=== PATIENT | female | born 1975 | race Caucasian/White ===

== ENCOUNTER 2016-11-11 18:13 | Emergency (ER) | payer OTHER ==
[~2016-11-11] VITALS: Ht 160 cm; Wt 73.5 kg
[2016-11-11 18:17] VITALS: BP 159/84; PULSE 95; RESP 17; TEMP 97.9; O2SAT 96
[2016-11-11] MEDS ORDERED: MELO-1 PO (18:38)
[2016-11-11] MEDS ORDERED: CYCL1TAB29 PO (18:38)
[2016-11-11] MEDS ORDERED: PRED50 PO (18:38)
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
[2016-11-11] MEDS ORDERED: KETOROLAC TROMETHAMINE 60 MG/2 ML (IM) VIAL IM ONE (18:45)
[2016-11-11] MEDS ORDERED: ORPHENADRINE INJ 60 MG/2 ML AMP IM ONE (18:45)
== END 2016-11-11 18:54 | disposition home or self-care (01) ==
LOC: NETRI 18:13
DX: M62.838 Other muscle spasm (principal); T14.8 Other injury of unspecified body region; V53.5XXA Driver of pick-up truck or van injured in collision with car, pick-up truck or van in traffic accident, initial encounter; Y92.481 Parking lot as the place of occurrence of the external cause
CPT/HCPCS: 96372; 99283; J1885; J2360

== ENCOUNTER → 2017-04-11 | Outpatient (CLI) | payer OTHER ==
[~2017-04-11] MED LIST: CYCL1TAB29 PO; LEXA10TA PO; LEXA5TAB PO; MELO-1 PO; PRED50 PO
[2017-04-11 14:03] LABS: AUTOMATED NEUTROPHIL # 4.8 TH/MM3 (1.8-7.7); BASOPHIL # 0.1 TH/MM3 (0-0.2); BASOPHIL % 0.9 % (0.0-2.0); EOSINOPHIL % 0.6 % (0.0-4.0); HEMATOCRIT 35.8 % (35.0-46.0); HEMO FLAGS DIFF FINAL; LYMPH % 33.4 % (9.0-44.0); LYMPHOCYTE # 2.6 TH/MM3 (1.0-4.8); MEAN CELL VOLUME 75.8 FL (80.0-100.0); MEAN CORPUSCULAR HGB CONC 31.6 % (32.0-36.0); MONO % 4.2 % (0.0-8.0); NEUT % 60.9 % (16.0-70.0); PLATELET COUNT 189 TH/MM3 (150-450); RED BLOOD COUNT 4.72 MIL/MM3 (4.00-5.30); RED CELL DISTRIBUTION WIDTH 15.5 % (11.6-17.2); WHITE BLOOD COUNT 7.8 TH/MM3 (4.0-11.0)
[2017-04-11 14:05] LABS: BLOOD, URINE NEG (NEG); COMMENT (UR) CULT NOT INDICATED; CULTURE IF INDICATED CULT NOT INDICATED; GLUCOSE,URINE NEG (NEG); KETONE, URINE NEG (NEG); NITRITE,URINE NEG (NEG); SQUAMOUS EPITHELIAL CELL URINE <1 /hpf (0-5); URINE COLOR YELLOW (YELLW/STRAW)
--- NOTE | 2017-04-13 01:19 | EKG ---
Date Performed: 04/11/2017 Time Performed: 13:43:34 PTAGE: 42 years EKG: Sinus rhythm PROLONGED QT INTERVAL ABNORMAL ECG NO PREVIOUS TRACING DOCTOR: Van Payton Interpretating Date/Time 04/13/2017 01:17:40
== END ==
LOC: CPRE 12:56
PROVIDERS: ATTEND Obstetrics & Gynecology
DX: Z01.810 Encounter for preprocedural cardiovascular examination (principal); Z01.812 Encounter for preprocedural laboratory examination; N92.0 Excessive and frequent menstruation with regular cycle; N94.6 Dysmenorrhea, unspecified; R94.31 Abnormal electrocardiogram [ECG] [EKG]
CPT/HCPCS: 36415; 81001; 84703; 85025; 93005

== ENCOUNTER 2017-04-17 12:42 | Inpatient (IN) | payer OTHER ==
--- NOTE | 2017-04-16 15:29 | MH ---
cc: CHANDNI PETTY MD DATE OF ADMISSION: 04/17/2017 ADMITTING DIAGNOSIS: Menorrhagia, dysmenorrhea and pelvic pain has had increasing symptoms over the last 3-4 months with intermittent ovarian cyst. Her Pap smear from 06/17/2016 was normal. Endocervical biopsy from 03/25/2017 was negative. Her endometrial biopsy from 04/02/2017 was negative. She has failed to respond to medical therapy is now admitted for hysterectomy. Her most recent ultrasound from 03/15/2017 showed uterus about 11.6 cm with benign appearing cyst in the left ovary. PAST MEDICAL HISTORY/PREVIOUS SURGERIES: She had D&C in 2006 laparoscopy 2008 she required cerclage her last . Four vaginal deliveries One spontaneous . TRANSFUSIONS None. SOCIAL HISTORY She is single. She is employed. Alcohol, tobacco and drugs are none. PHYSICAL EXAMINATION: IN GENERAL: Exam is a well-nourished well-developed white female, signs stable. HEAD, EYES, EARS, NOSE, AND THROAT: Exam is normal. CHEST: The chest is clear. HEART: The heart has a regular rate. BREASTS: Symmetrical. ABDOMEN: Benign. PELVIC: The pelvic examination has normal external genitalia and Bartholin's, urethral, and Snead's, the vagina is normal. Cervix is normal. Uterus is about 12 weeks' size. Adnexa nonpalpable. ASSESSMENT: As above. PLAN: She is now admitted for a laparoscopy, probable LASH BSO, possible INGE-BSO. In the office regarding the in the procedures, the risks and complications explained and accepted. She is aware with the BSO she will the postoperative estrogen replacement therapy. MD SHRADDHA Nevarez/tong /2:42 PM /3:17 PM
[~2017-04-17] VITALS: Ht 160 cm; Wt 76.2 kg
[~2017-04-17 12:42] MED LIST changes: +BUPIVACAINE LIPOSOME PF 1.3% 20 ML VIAL ONE; -CYCL1TAB29 PO; +GLYCOPYRROLATE 0.2 MG/ML VIAL IV ONE; +GLYCOPYRROLATE 0.4 MG/2 ML VIAL IV ONE; -LEXA10TA PO; +NEOSTIGMINE 3 MG/3 ML SYR IV ONE; +NORMOSOL R INJ 1,000 ML IV ONE; +ONDANSETRON HCL 4 MG/2 ML VIAL IV PUSH ONE; -PRED50 PO; +PROPOFOL 200 MG/20 ML AMP IV ONE; +ROCURONIUM INJ 50 MG/5 ML SYRINGE IV PUSH ONE
[2017-04-17] MEDS ORDERED: diphenhydrAMINE HCL 50 MG/ML VIAL IV ONE (13:45)
[2017-04-17] MEDS ORDERED: INSULIN HUMAN REGULAR 1,000 UNITS/10 ML VIAL SQ PRN (13:45)
[2017-04-17] MEDS ORDERED: METOPROLOL TARTRATE 25 MG TAB PO PRN (13:45)
[2017-04-17] MEDS ORDERED: LACTATED RINGER'S 1000 ML IV PRN (13:45)
[2017-04-17] MEDS ORDERED: POVIDONE IODINE 5% (ANTISEPSIS KIT) 4 APPLICATIONS EACH NARE PRN (13:45)
[2017-04-17] MEDS ORDERED: SODIUM CHLORID 0.9% 500 ML IV PRN (13:45)
[2017-04-17] MEDS ORDERED: CHLORHEXIDINE GLUCONATE 2 % 1 PACK (2 CLOTHS) TOPICAL PRN (13:45)
[2017-04-17] MEDS ORDERED: ACETAMINOPHEN 1000 MG/100 ML VIAL IV ONE (14:00)
[2017-04-17] MEDS ORDERED: ceFAZolin 2 GM PREMIX 50 ML IV SCH (14:00)
[2017-04-17] MEDS ORDERED: DICLOFENAC SODIUM 37.5 MG/ML VIAL IV PUSH ONE (14:31)
[2017-04-17] MEDS ORDERED: PROMETHAZINE HCL 25 MG TAB PO PRN (16:30)
[2017-04-17] MEDS ORDERED: PROMETHAZINE INJ 25 MG/ML VIAL IM PRN (16:30)
[2017-04-17] MEDS ORDERED: ZOLPIDEM TARTRATE 5 MG TAB PO PRN (16:30)
[2017-04-17] MEDS ORDERED: ONDANSETRON ODT 4 MG TAB PO PRN (16:30)
[2017-04-17] MEDS ORDERED: SODIUM CHLORIDE 0.9% FLUSH 5 ML FLUSH FLUSH PRN (16:30)
[2017-04-17] MEDS ORDERED: DO NOT ADM ANY ANTICOAGULANT DRUGS PRN (16:40)
[2017-04-17] MEDS: D5-1/2 NS + KCL 20 MEQ INJ 1,000 ML IV SCH (17:00)
[2017-04-17] MEDS ORDERED: *morphine SULFATE 8 MG/ML PERIprocedure ONLY ONE ×3 (17:06→18:32)
[2017-04-17] MEDS ORDERED: DIMETHICONE/OXYBENZONE/PADMIATE LIP BALM 4.25 GM TOPICAL ONE (17:43)
[2017-04-17] MEDS: DOCUSATE SODIUM 100 MG CAP PO SCH (18:00)
[2017-04-17] MEDS ORDERED: DICLOFENAC SODIUM 37.5 MG/ML VIAL IV PUSH SCH (18:00)
[2017-04-17] MEDS ORDERED: DIMETHICONE/OXYBENZONE/PADMIATE LIP BALM 4.25 GM TOPICAL PRN (18:15)
[2017-04-17 19:56] VITALS: O2SAT 97
[2017-04-17 20:00] VITALS: BP 131/70; PULSE 70; RESP 18; TEMP 97.5; O2SAT 97
[2017-04-17] MEDS: ONDANSETRON HCL 4 MG/2 ML VIAL IV PRN (20:05)
[2017-04-17] MEDS: HYDROmorphone HCL PF 1 MG/ML VIAL IV PRN (20:06)
[2017-04-17] MEDS: SODIUM CHLORIDE 0.9% FLUSH 5 ML FLUSH FLUSH SCH (20:06)
[2017-04-17] MEDS: DICLOFENAC SODIUM 37.5 MG/ML VIAL IV PUSH SCH (20:07)
[2017-04-17 20:29] LABS: HEMATOCRIT 30.7 % (35.0-46.0); REVIEW FLAG FINAL
[2017-04-18] VITALS (7 sets, daily range): BP systolic 120–160; BP diastolic 60–74; PULSE 68–87; RESP 16–18; TEMP 96.3–98.7; O2SAT 97–100
[2017-04-18] MEDS: HYDROmorphone HCL PF 1 MG/ML VIAL IV PRN ×4 (00:03→21:14)
[2017-04-18] MEDS: ACETAMINOPHEN 1000 MG/100 ML VIAL IV SCH ×4 (00:04→21:13)
[2017-04-18] MEDS: D5-1/2 NS + KCL 20 MEQ INJ 1,000 ML IV SCH ×3 (00:04→14:28)
[2017-04-18] MEDS: DICLOFENAC SODIUM 37.5 MG/ML VIAL IV PUSH SCH ×3 (04:08→16:52)
[2017-04-18] MEDS: DOCUSATE SODIUM 100 MG CAP PO SCH ×3 (04:52→19:47)
[2017-04-18] MEDS: SODIUM CHLORIDE 0.9% FLUSH 5 ML FLUSH FLUSH SCH ×2 (08:09→21:00)
[2017-04-18] MEDS: diphenhydrAMINE HCL 25 MG CAP PO PRN ×2 (09:19→16:52)
[2017-04-18 09:28] LABS: AUTOMATED NEUTROPHIL # 3.2 TH/MM3 (1.8-7.7); BASOPHIL % 0.6 % (0.0-2.0); EOSINOPHIL # 0.1 TH/MM3 (0-0.4); EOSINOPHIL % 2.1 % (0.0-4.0); HEMATOCRIT 31.4 % (35.0-46.0); HEMO FLAGS DIFF FINAL; LYMPH % 32.9 % (9.0-44.0); LYMPHOCYTE # 1.8 TH/MM3 (1.0-4.8); MEAN CELL VOLUME 77.5 FL (80.0-100.0); MEAN CORPUSCULAR HEMOGLOBIN 24.5 PG (27.0-34.0); MEAN CORPUSCULAR HGB CONC 31.6 % (32.0-36.0); MONO % 5.4 % (0.0-8.0); PLATELET COUNT 148 TH/MM3 (150-450); RED BLOOD COUNT 4.05 MIL/MM3 (4.00-5.30); RED CELL DISTRIBUTION WIDTH 15.1 % (11.6-17.2); WHITE BLOOD COUNT 5.5 TH/MM3 (4.0-11.0)
--- NOTE | 2017-04-18 09:31 | MP ---
cc: CHANDNI PETTY DATE OF SURGERY: 04/17/2017 PREOPERATIVE DIAGNOSIS Menorrhagia, dysmenorrhea, pelvic pain. POSTOPERATIVE DIAGNOSIS Menorrhagia, dysmenorrhea, pelvic pain. PROCEDURE LASH, BSO. ANESTHESIA General ET. SURGEON Chandni Petty MD SCIENTIST PROPAGATOR Arabella Amaya. ESTIMATED BLOOD LOSS About 100 ccs. FLUIDS 1 liter of crystalloid. OBJECTIVE FINDINGS Following the induction of adequate general endotracheal anesthesia, the patient was prepped and draped supine on the operating table in the left lateral tilt position in the usual sterile fashion with the bladder being drained by Goetz catheterization. The abdomen was opened through a 3 cm curving infraumbilical incision using a knife to cut down the skin to the fascia. The fascia was opened transversely. Rectus muscles in the midline and the peritoneum opened sharply without incident. The mini GelPort was placed. The laparoscope was inserted, under direct vision a 5 port was placed in the left lower quadrant and the air seal port right lower quadrant. Pelvic contents revealed a globular uterus about 12 weeks size, normal tubes, normal ovaries, normal cul-de-sacs, normal liver edge. Working first on the left harmonic scalpel was used to take the left ovarian vessels, left round ligament, left broad ligament, left-sided bladder flap and left uterine vessels, same on the right. Harmonic scalpel was now used to amputate the fundus from the cervix. A pouch inserted and used to extract the uterus, tubes and ovaries through the pouch with the uterus being reduced in size with hand morcellation inside the pouch to extract all tissue with no spillage. Irrigation now performed, there is one bleeding along the left broad ligament which was controlled with a unipolar spatula. Low-pressure test revealed no bleeding. Ureters were inspected, good peristalsis. The operative sites were coated with Evicel and GelPort was now removed and the peritoneum sutured with a running stitch of 2-0 Vicryl, the fascia with a running locking stitch of 0-Vicryl corner to midline and tied, subcu with running 3-0 Vicryl and skin with running subcuticular 3-0 Monocryl. The scope was now reinserted through the lower port site and used to inspect the GelPort site. There was no entrapment of tissue, no bleeding. The pelvis was inspected, there was no bleeding. The scope was now removed, gas was allowed to escape. The small ports removed, sutured with 3-0 Monocryl subcuticular. Dermabond was applied. All counts were correct and the patient was awakened and taken to the recovery room in good condition. MD SHRADDHA Nevarez/LUCIA /4:31 PM /9:13 AM
[2017-04-18 09:52] LABS: BICARBONATE 25.5 MEQ/L (21.0-32.0); POTASSIUM 3.9 MEQ/L (3.5-5.1)
[2017-04-18] MEDS ORDERED: LEXA10TA PO (15:20)
[2017-04-18] MEDS: ONDANSETRON HCL 4 MG/2 ML VIAL IV PRN (19:47)
[2017-04-18] MEDS ORDERED: ESCITALOPRAM OXALATE 10 MG TAB PO SCH (21:00)
[2017-04-19] VITALS: BP 129/67; PULSE 80; RESP 18; TEMP 98; O2SAT 94
[2017-04-19] MEDS: D5-1/2 NS + KCL 20 MEQ INJ 1,000 ML IV SCH ×2 (01:00→09:00)
[2017-04-19] MEDS: DICLOFENAC SODIUM 37.5 MG/ML VIAL IV PUSH SCH ×2 (01:19→06:03)
[2017-04-19] MEDS: ONDANSETRON HCL 4 MG/2 ML VIAL IV PRN (01:33)
[2017-04-19 04:00] VITALS: BP 140/69; PULSE 84; RESP 18; TEMP 96.9; O2SAT 94
[2017-04-19] MEDS: HYDROmorphone HCL PF 1 MG/ML VIAL IV PRN (06:03)
[2017-04-19] MEDS: ACETAMINOPHEN 1000 MG/100 ML VIAL IV SCH (06:04)
[2017-04-19 08:00] VITALS: BP 131/76; PULSE 87; RESP 16; TEMP 96.7; O2SAT 95
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
[2017-04-19] MEDS: SODIUM CHLORIDE 0.9% FLUSH 5 ML FLUSH FLUSH SCH (09:00)
[2017-04-19] MEDS: diphenhydrAMINE HCL 25 MG CAP PO PRN (09:27)
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
== END 2017-04-19 11:19 | disposition home or self-care (01) | DRG 743 ==
LOC: HSDC 12:42 → HOCB 16:20 → OBSVTOIN 04-18 13:40
PROVIDERS: ADMIT Obstetrics & Gynecology; ATTEND Obstetrics & Gynecology
PROC: 0UT90ZZ Resection of Uterus, Open Approach (ICD-10-PCS; principal; 2017-04-18)
PROC: 0UT20ZZ Resection of Bilateral Ovaries, Open Approach (ICD-10-PCS; 2017-04-18)
DX: N92.0 Excessive and frequent menstruation with regular cycle (principal); F41.9 Anxiety disorder, unspecified; N83.202 Unspecified ovarian cyst, left side; N94.6 Dysmenorrhea, unspecified
CPT/HCPCS: 76937; 80048; 85014; 85018; 85025; 88307; 94150; C9290; J0131; J0690; J1130; J1170; J1200; J2270; J2405; J2710; J3010; J3480; J7120